=== PATIENT | male | born 1975 | race Two or more races ===

== ENCOUNTER 2017-04-17 14:34 | Emergency (ER) | payer MEDICAID ==
[~2017-04-17] VITALS: Ht 177.8 cm; Wt 81.6 kg
[2017-04-17 14:42] VITALS: BP 139/75
== END 2017-04-17 15:09 | disposition home or self-care (01) ==
LOC: ER 14:36
DX: G40.909 Epilepsy, unspecified, not intractable, without status epilepticus (principal); F17.200 Nicotine dependence, unspecified, uncomplicated; Z76.0 Encounter for issue of repeat prescription
CPT/HCPCS: 99281; A4606; Z7610; Z7502

== ENCOUNTER 2017-04-21 08:45 | Emergency (ER) | payer MEDICAID ==
[~2017-04-21] VITALS: Ht 170.2 cm; Wt 84.4 kg
--- NOTE | 2017-04-21 08:50 | NUR ---
[facility] 89 [facility] FOR POSSIBLE SEIZURE, HX OF SEIZURE, RE=[id number]. NO TRAUMA, ALTERED, A/OX 1. BREATHING EVEN AND UNLABORED. NO SOB. VITALS STABLE. SAFETY AND COMFORT MEASURES IN PLACE. AWAITING MD ORDERS.
[2017-04-21] MEDS ORDERED: LORAZEPAM INJ 2 MG/ML VIAL IV ONE (09:30)
--- NOTE | 2017-04-21 09:30 | NUR ---
NEW IV STARTED ON RAC, 20 G.
[2017-04-21] MEDS ORDERED: LORAZEPAM INJ 2 MG/ML VIAL ONE (09:31)
[2017-04-21 09:49] LABS: CALCIUM, SERUM 8.6 mg/dL (8.5-10.1); POTASSIUM 4.3 mmol/L (3.5-5.1)
[2017-04-21] MEDS ORDERED: CARBAMAZEPINE 200 MG TABLET ONE (10:24)
[2017-04-21] MEDS ORDERED: CARBAMAZEPINE 200 MG TABLET PO ONE (10:30)
[2017-04-21 10:57] VITALS: BP 124/84
--- NOTE | 2017-04-21 10:58 | NUR ---
IV removed. Catheter intact and site benign. Pressure and 4x4 applied to site. No bleeding noted. Patient discharged to home in stable condition. Written and verbal after care instructions given. Patient verbalizes understanding of instruction.
== END 2017-04-21 10:57 | disposition home or self-care (01) ==
LOC: ER 08:46
DX: R56.9 Unspecified convulsions (principal); R79.1 Abnormal coagulation profile; F17.200 Nicotine dependence, unspecified, uncomplicated
CPT/HCPCS: 36415; 80048; 80156; 96374; 99284; A4606; J2060; Z7610